=== PATIENT | female | born 1935 | race Caucasian/White ===

== ENCOUNTER 2020-10-17 16:22 | Observation (INO) | payer MEDICARE, OTHER ==
[~2020-10-17] VITALS: Ht 165.1 cm; Wt 50.5 kg
[2020-10-17 17:17] LABS: BASO # 0.1 (0.0-0.2); BASO % 0.5 % (0.0-2.0); EOS # 0.1 (0.0-0.7); EOS % 0.9 % (0-4.0); GRAN # 8.1 (1.4-6.5); GRAN % 73.8 % (42.2-75.2); HEMOGLOBIN 12.5 g/dl (12.5-16.0); LYMPH # 1.8 (1.2-3.4); LYMPH % 16.6 % (20.0-51.0); MEAN CELL VOLUME 88 fl (80.0-100.0); MEAN CORPUSCULAR HEMOGLOBIN 30 pg (27.0-31.0); MEAN CORPUSCULAR HGB CONC 34 g/dl (33.0-37.0); MEAN PLATELET VOLUME 9.1 fl (7.4-10.4); MONO # 0.9 (0.1-0.6); MONO % 7.8 % (1.7-9.3); PLATELET COUNT 260 K/mm3 (130-400); RED BLOOD COUNT 4.16 M/mm3 (4.10-5.30); REDCELL DISTRIBUTION WIDTH-CV 14.6 % (11.5-14.5)
[2020-10-17 17:23] LABS: INR 1.1 (0.8-3.0); PROTHROMBIN TIME 11.8 SECONDS (9.7-12.8)
[2020-10-17 17:26] LABS: HEMATOCRIT 36.5 % (37.0-47.0); PARTIAL THROMBOPLASTIN TIME 26.7 SECONDS (26.0-37.0)
[2020-10-17 17:28] LABS: ALANINE AMINOTRANSFERASE 21 U/L (4-34); ALBUMIN 3.7 gm/dL (3.5-5.0); ALKALINE PHOSPHATASE 40 U/L (50-136); ANION GAP 7 mmol/L (7-16); AST,SGOT 32 U/L (15-37); BILIRUBIN,TOTAL 0.5 mg/dL (0.0-1.0); BLOOD UREA NITROGEN 16 mg/dL (7-17); CALCIUM 8.7 mg/dL (8.4-10.2); CARBON DIOXIDE 30 mmol/L (22-30); CHLORIDE 94 mmol/L (98-107); CREATININE, serum 0.58 (0.52-1.25); GLUCOSE 130 mg/dL (74-106); POTASSIUM 3.2 mmol/L (3.4-5.0); SODIUM 130 mmol/L (137-145); TOTAL PROTEIN 6.3 gm/dL (6.4-8.2)
[2020-10-17 17:52] LABS: TROPONIN-I < 0.012 ng/mL (0.000-0.035)
[2020-10-17 22:00] VITALS: BP 117/64; PULSE 74; TEMP 98.2
--- NOTE | 2020-10-18 11:44 | NUR ---
pt continues to be unresponsive. Negative covid test recieved. Plan on discharge transfer to [facility] @133 today.
[2020-10-18] MEDS ORDERED: ATIVAN 1MG T1 MG/TAB PO (11:45)
[2020-10-18] MEDS ORDERED: TRANSDERM-0.5 MG/21 TD (11:45)
[2020-10-18] MEDS ORDERED: ROXANOL 20MG20 MG/ML SL (11:45)
--- NOTE | 2020-10-18 11:50 | NUR ---
RONALD was notified by palliative care nurse, Mimi, that the patient's family has decided to pursue comfort measures and that they would like the patient to go to the hospice house. The patient's nephew, Cydney, was in the patient's room. SW met with the patient and Cydney. The patient was sleeping. The patient resides at [facility]. Cydney reports that the patient's sister, Mariela, is the patient's DPOA-HC and that they would like for the patient to go to the hospice house. He states that the patient is not and does not have any children. He states that she has two siblings: Mariela Villegas and Tammy Lazar. Mariela is driving up here from [place]. Tammy lives in [place], [place]. RONALD contacted Marzena at [facility]. The patient's PCP is Dr. Rodriguez and they had a copy of the patient's DPOA-HC. RONALD received the document via fax and placed the document in the patient's chart. The patient's DPOA-HC is her sister, Mariela. RONALD then contacted the patient's sister, Mariela, to discuss discharge plan. Mariela confirms that she would like the patient to go to the hospice house. She states that she is on her way from [place] and has 9-10 more hours to go, before she gets to [place]. RONALD contacted and faxed a referral to Patricia at [facility]. Patricia reports that they will need a COVID test and they can take a rapid test. RONALD notified the clinical team. A COVID test was ordered and the results came back negative. RONALD faxed the results to [facility]. Patricia, at [facility], reports that they can take the patient today and requested a 1330 transport time. RONALD contacted and updated the patient's sister, Mariela, and read the EMS Transfer Consent Forms outloud to her. Mariela was agreeable to plan. Mariela also verbalized understanding for the EMS Transfer Form and gave SW approval to sign the form on her behalf. RONALD updated the patient's nephew, Cydney. The patient is to discharge today, 10/18, to the [facility]. Transportation was scheduled at 1330, via [facility]. SW informed the patient's RN and family of the time. They were all agreeable to the time. No additional needs at this time.
--- NOTE | 2020-10-18 12:46 | NUR ---
PT TO DISCHARGE TO HOSPICE HOUSE @3836 TODAY.
--- NOTE | 2020-10-18 13:49 | NUR ---
REPORT CALLED TO HOSPICE HOUSE AND REPORTED OFF. PT LEFT VIA EMS TRANSPORT AND [facility] WILL FOLLOW.
== END 2020-10-18 13:51 | disposition hospice, inpatient (51) ==
LOC: COL.ER 16:22 → SURG 17:38
PROVIDERS: Emergency Medicine; ADMIT Internal Medicine
DX: I61.8 Other nontraumatic intracerebral hemorrhage (principal); G93.5 Compression of brain; R55 Syncope and collapse; S01.91XA Laceration without foreign body of unspecified part of head, initial encounter; E87.1 Hypo-osmolality and hyponatremia; E87.6 Hypokalemia
CPT/HCPCS: 99223-AI; G0378; J1953; J2270; J2405